=== PATIENT | male | born 1935 | race Caucasian/White ===

== ENCOUNTER 2017-10-27 01:28 | Emergency (ER) | payer MEDICARE, BC ==
[2017-10-27 02:12] VITALS: BP 164/93
--- NOTE | 2017-10-27 03:03 | EDM.PDOC ---
ED HPI GENERAL MEDICAL PROBLEM - General Chief Complaint: General Stated Complaint: heart palpitations Time Seen by Provider: 10/27/17 01:35 Source of Information: Reports: Patient History Limitations: Reports: No Limitations - History of Present Illness INITIAL COMMENTS - FREE TEXT/NARRATIVE: Presents to ER with complaints of acute palpitations. Denies any chest pain or shortness of breath. He states that the symptoms only lasted a few minutes and that he came to ER right away at onset. Pt. has a longstanding history of afib with RVR and has had a ablation. He states that he has been somewhat stressed and has not been getting much sleep. Onset: Today Onset Date: 10/27/17 - Related Data Allergies Allergy/AdvReac Type Severity Reaction Status Date / Time No Known Drug Allergies Allergy Other Verified 10/27/17 01:40 Home Meds: Home Meds Potassium Chloride [Klor-Con 10] 10 meq PO BID 04/21/15 [History] atorvaSTATin [Lipitor] 10 mg PO DAILY 04/21/15 [History] Aspirin [Adult Low Dose Aspirin EC] 81 mg PO DAILY 10/27/17 [History] Lisinopril 5 mg PO DAILY 10/27/17 [History] Past Medical History HEENT History: Reports: Hard of Hearing, Impaired Vision Cardiovascular History: Reports: Afib, High Cholesterol Other Cardiovascular History: atrial fib - Past Surgical History Cardiovascular Surgical History: Reports: Cardiac Ablation Other Male Surgeries/Procedures: Prostate removed Social & Family History - Tobacco Use Smoking Status *Q: Never Smoker - Recreational Drug Use Recreational Drug Use: No ED ROS GENERAL - Review of Systems Review Of Systems: See Below Constitutional: Reports: No Symptoms HEENT: Reports: No Symptoms Respiratory: Reports: No Symptoms Cardiovascular: Reports: Palpitations Endocrine: Reports: No Symptoms GI/Abdominal: Reports: No Symptoms : Reports: No Symptoms Musculoskeletal: Reports: No Symptoms Skin: Reports: No Symptoms Neurological: Reports: No Symptoms Psychiatric: Reports: No Symptoms Hematologic/Lymphatic: Reports: No Symptoms Immunologic: Reports: No Symptoms ED EXAM, GENERAL - Physical Exam Exam: See Below Exam Limited By: No Limitations General Appearance: Alert, WD/WN, No Apparent Distress Nose: Normal Inspection, Normal Mucosa, No Blood Throat/Mouth: Normal Inspection, Normal Lips, Normal Teeth, Normal Gums, Normal Oropharynx, Normal Voice, No Airway Compromise Head: Atraumatic, Normocephalic Neck: Normal Inspection, Supple, Non-Tender, Full Range of Motion Respiratory/Chest: No Respiratory Distress, Lungs Clear, Normal Breath Sounds, No Accessory Muscle Use, Chest Non-Tender Cardiovascular: Normal Peripheral Pulses, Regular Rate, Rhythm, No Edema, No Gallop, No JVD, No Murmur, No Rub Peripheral Pulses: 4+: Radial (L), Radial (R) GI/Abdominal: Normal Bowel Sounds, Soft, Non-Tender, No Organomegaly, No Distention, No Abnormal Bruit, No Mass (Male) Exam: Deferred Rectal (Males) Exam: Deferred Back Exam: Normal Inspection, Full Range of Motion, NT Extremities: Normal Inspection, Normal Range of Motion, Non-Tender, Normal Capillary Refill, No Pedal Edema Neurological: Alert, Oriented, CN II-XII Intact, Normal Cognition, Normal Gait, Normal Reflexes, No Motor/Sensory Deficits Psychiatric: Normal Affect, Normal Mood Skin Exam: Warm, Dry, Intact, Normal Color, No Rash Lymphatic: No Adenopathy EKG INTERPRETATION Rhythm: NSR [place]: Normal P-Wave: Present QRS: Normal ST-T: Normal QT: Normal Course - Vital Signs Last Recorded V/S: Last Vital Signs Temp 36.7 C 10/27/17 01:28 Pulse 91 10/27/17 01:52 Resp 14 10/27/17 01:52 BP 164/93 H 10/27/17 01:52 Pulse Ox 97 10/27/17 01:52 Departure - Departure Time of Disposition: 02:00 Disposition: Home, Self-Care 01 Condition: Good Clinical Impression: Intermittent palpitations - Discharge Information Instructions: Palpitations, [id number] Referrals: PCP,Nickoberick [Primary Care Provider] - Forms: ED Department Discharge Additional Instructions: Home to rest. Return to ER if you have any recurrence of the symptoms, chest pain, or shortness of breath. - Assessment/Plan Plan: Home to rest. Return to ER if you have any recurrence of the symptoms, chest pain, or shortness of breath.
== END 2017-10-27 01:56 | disposition home or self-care (01) ==
LOC: VM.ED 01:28
DX: R00.2 Palpitations (principal); I48.91 Unspecified atrial fibrillation; Z79.899 Other long term (current) drug therapy
CPT/HCPCS: 99284

== ENCOUNTER 2019-07-05 08:33 | Emergency (ER) | payer MEDICARE, BC ==
[2019-07-05] MEDS ORDERED: Sodium Chloride 0.9% 10 ML Syringe FLUSH PRN (09:17)
--- NOTE | 2019-07-05 09:20 | EDM.PDOC ---
ED HPI GENERAL MEDICAL PROBLEM - General Chief Complaint: Cardiovascular Problem Stated Complaint: SOB Time Seen by Provider: 07/05/19 09:05 Source of Information: Reports: Patient History Limitations: Reports: No Limitations - History of Present Illness INITIAL COMMENTS - FREE TEXT/NARRATIVE: Patient comes emergency department today with complaints of a fast heartbeat and palpitations. The consistency of the patient's story is that it is somewhat inconsistent. He initially tells me that it started last night when he was getting ready to go to bed when he exerts himself. When asked him what he was doing when the fast heart rate and palpitations started he said that he was just sitting there and nothing initiated it. Is unsure if he felt the sensation during the night when he was sleeping. He initially tells me he feels it at rest in the morning when he woke up but then he tells me he does not feel any lesions or fast heart rate when he is at rest only when he gets up and exerts himself. He then tells me his palpitations and fast heart rate go away when he gets up and exerts himself. He denies any confusion. No recent falls or trauma. No fever no chills. No chest pain weakness dizziness lightheadedness. No visual acuity changes. No paresthesias or change in the functionality of his upper or lower extremities. Denies any headache. No abdominal pain no nausea or vomiting. No fever no chills. No diarrhea recently. He does have a history of atrial fibrillation with RVR for which she has had an ablation in the past. He relates that he has to urinate more quickly when he feels his heart going fast. He did take his aspirin this morning as he does daily. He does have a history of anxiety with the palpitations sensations and he is very nervous about his heart rate. - Related Data Allergies Allergy/AdvReac Type Severity Reaction Status Date / Time No Known Drug Allergies Allergy Other Verified 07/05/19 09:04 Home Meds: Home Meds Potassium Chloride [Klor-Con 10] 10 meq PO BID 04/21/15 [History] atorvaSTATin [Lipitor] 10 mg PO DAILY 04/21/15 [History] Aspirin [Adult Low Dose Aspirin EC] 81 mg PO DAILY 10/27/17 [History] Lisinopril 5 mg PO DAILY 10/27/17 [History] Past Medical History HEENT History: Reports: Hard of Hearing, Impaired Vision Cardiovascular History: Reports: Afib, High Cholesterol Other Cardiovascular History: atrial fib - Past Surgical History Cardiovascular Surgical History: Reports: Cardiac Ablation Other Male Surgeries/Procedures: Prostate removed Social & Family History - Tobacco Use Smoking Status *Q: Unknown Ever Smoked ED ROS GENERAL - Review of Systems Review Of Systems: Comprehensive ROS is negative, except as noted in HPI. ED EXAM, GENERAL - Physical Exam Exam: See Below Exam Limited By: No Limitations General Appearance: Alert, WD/WN, No Apparent Distress, Anxious (quite anxious at that. ), Thin Eye Exam: Bilateral Eye: EOMI, PERRL Ears: Normal External Exam Nose: Normal Inspection, Normal Mucosa Throat/Mouth: Normal Inspection, Normal Lips, Normal Oropharynx, No Airway Compromise Head: Atraumatic, Normocephalic Neck: Normal Inspection, Supple, Non-Tender, Full Range of Motion. No: Carotid Bruit Respiratory/Chest: No Respiratory Distress, Lungs Clear, Normal Breath Sounds, No Accessory Muscle Use Cardiovascular: Normal Peripheral Pulses, No Edema, No Gallop, No JVD, No Murmur , No Rub, Tachycardia, Irregularly Irregular Peripheral Pulses: 2+: Radial (L), Radial (R), Posterior Tibial (L), Posterior Tibial (R), Dorsalis Pedis (L), Dorsalis Pedis (R) GI/Abdominal: Normal Bowel Sounds, Soft, Non-Tender (Male) Exam: Deferred Rectal (Males) Exam: Deferred Back Exam: Normal Inspection, Full Range of Motion Extremities: Normal Inspection, Normal Range of Motion, Non-Tender, Normal Capillary Refill Neurological: Alert, Oriented, Normal Cognition, No Motor/Sensory Deficits Psychiatric: Normal Affect, Normal Mood Skin Exam: Dry, Intact, Normal Color, Cool Lymphatic: No Adenopathy EKG INTERPRETATION EKG Date: 07/05/19 Time: 08:34 Rhythm: Other (Sinus tach) Rate (Beats/Min): 106 [place]: LAD-Left [place] Deviation P-Wave: Present QRS: Other (Left anterior fascicular block) ST-T: Normal QT: Normal Comparison: No Change Course - Vital Signs Last Recorded V/S: Last Vital Signs Temp 37.0 C 07/05/19 10:35 Pulse 90 07/05/19 10:35 Resp 18 07/05/19 10:35 BP 158/88 H 07/05/19 10:35 Pulse Ox 97 07/05/19 10:35 - Orders/Labs/Meds Orders: Active Orders 24 hr Category Date Time Status EKG Documentation Completion [RC] STAT Care 07/05/19 09:16 Active Peripheral IV Insertion Adult [OM.PC] Stat Oth 07/05/19 09:16 Ordered Labs: Laboratory Tests 07/05/19 07/05/19 07/05/19 Range/Units 08:55 08:55 09:50 WBC 3.8 L (4.0-10.0) x10^3/uL RBC 3.38 L (4.5-6.0) x10^6/uL Hgb 10.4 L D (14.0-18.0) g/dL Hct 31.2 L (40.0-52.0) % MCV 92.3 (78.0-93.0) fL MCH 30.8 (26.0-32.0) pg MCHC 33.3 (32.0-36.0) g/dL RDW Coeff of [place] 13.9 (10.0-15.0) % Plt Count 367 (130-400) x10^3/uL Neut % (Auto) 67.6 (50.0-80.0) % Lymph % (Auto) 21.2 L (25.0-50.0) % [place] % (Auto) 9.8 (2.0-11.0) % Eos % (Auto) 1.1 (0.0-4.0) % Baso % (Auto) 0.3 (0.2-1.2) % Sodium 133 L (136-145) mmol/L Potassium 4.3 (3.5-5.1) mmol/L Chloride 97 L (98-107) mmol/L Carbon Dioxide 25 (21-32) mmol/L Anion Gap 15.3 (10-20) mmol/L BUN 18 (7-18) mg/dL Creatinine 1.3 (0.70-1.30) mg/dL Est Cr Clr Drug Dosing TNP Estimated GFR (MDRD) 53 Glucose 135 H (74-106) mg/dL Calcium 8.6 (8.5-10.1) mg/dL Corrected Calcium 9.08 (8.5-10.1) mg/dL Total Bilirubin 0.3 (0.2-1.0) mg/dL AST 19 (15-37) U/L ALT 28 (16-63) U/L Alkaline Phosphatase 70 (46-116) U/L Troponin I < 0.017 (<=0.056) ng/mL Total Protein 7.0 (6.4-8.2) g/dL Albumin 3.4 (3.4-5.0) g/dL Globulin 3.6 Albumin/Globulin Ratio 0.94 TSH, Ultra Sensitive 1.754 (0.358-3.74) uIU/mL Urine Color Yellow (YELLOW) Urine Appearance Clear (CLEAR) Urine pH 7.5 (5.0-8.0) Ur Specific [place] 1.020 Urine Protein Negative (NEGATIVE) mg/dL Urine Glucose (UA) 100 H (NEGATIVE) mg/dL Urine Ketones Negative (NEGATIVE) mg/dL Urine Occult Blood Negative (NEGATIVE) Urine Nitrite Negative (NEGATIVE) Urine Bilirubin Negative (NEGATIVE) Urine Urobilinogen 0.2 (0.2) EU/dL Ur Leukocyte Esterase Negative (NEGATIVE) Meds: Medications Discontinued Medications Generic Name Dose Route Start Last Admin Trade Name Freq PRN Reason Stop Dose Admin Lorazepam 0.25 mg 07/05/19 09:44 07/05/19 10:13 Ativan PO 07/05/19 09:45 0.25 mg ONETIME ONE Administration Sodium Chloride 10 ml 07/05/19 09:17 Saline Flush FLUSH ASDIRECTED PRN Keep Vein Open - Re-Assessments/Exams Free Text/Narrative Re-Assessment/Exam: 07/05/19 10:25 He did get up to the bathroom about 3 times in a very period of time which she relates is normal when he feels anxious or his heart rate going fast. His EKG is unchanged from previous he has some mild sinus arrhythmia but after being here for a while and sitting he has an normal sinus rhythm in the 80s. His laboratory evaluation is rather unremarkable with a normal troponin TSH potassium. Given a small dose of lorazepam 0.25 mg orally. 07/05/19 The patient was monitored in the emergency department over the next couple of hours. His heart rate maintained in the 80s. He appropriately would elevate to about 100 when he would get up and go to the bathroom but it would back to 80s when he was resting. Following the Ativan he feels much better. He is not anxious anymore. He does not feel like he needs to urinate constantly. His palpitations and tachycardic sensation has resolved. His laboratory evaluation is really unremarkable. I have not seen any evidence of atrial fibrillation or atrial flutter or other irregular heartbeats. I really wonder if this is not somewhat of a component of anxiety that has been addressed in the past reviewing his multiple ER visits for tachycardia and palpitations. Not withstanding this I would still like him to rest over the next couple of days. If he continues to have the sensation see his primary care provider and will put a Holter monitor on for evaluation of tachycardia dysrhythmias. Tinea with his previous therapies. If at any time he feels like he is going to pass out his heartbeat is irregular or he develops pain or shortness of breath or new or different symptoms he is to recheck in the emergency department. He is understanding this and his questions are answered. Departure - Departure Time of Disposition: 10:46 Disposition: Home, Self-Care 01 Clinical Impression: Palpitation Instructions: Palpitations, [id number] Referrals: Breanna Patel MD [Primary Care Provider] - Forms: ED Department Discharge Additional Instructions: Continue with your previous therapies. See PCP this week for recheck and consider a holter monitor placement. Return to the ED if new or worsening symptoms. Follow up with PCP as above. Sepsis Event Note - Evaluation Sepsis Screening Result: No Definite Risk - Focused Exam Vital Signs: Vital Signs Temp Pulse Resp BP Pulse Ox 07/05/19 10:35 37.0 C 90 18 158/88 H 97 07/05/19 09:35 94 17 161/81 H 98 07/05/19 08:35 36.9 C 102 H 16 163/85 H 100 Date Exam was Performed: 07/05/19 Time Exam was Performed: 15:42 - My Orders Last 24 Hours: My Active Orders 07/05/19 09:16 EKG Documentation Completion [RC] STAT Peripheral IV Insertion Adult [OM.PC] Stat - Assessment/Plan Last 24 Hours: My Active Orders 07/05/19 09:16 EKG Documentation Completion [RC] STAT Peripheral IV Insertion Adult [OM.PC] Stat Assessment:: palpitations, ? anxiety or other underlying dysrythmia. Plan: Continue with your previous therapies. See PCP this week for recheck and consider a holter monitor placement. Return to the ED if new or worsening symptoms. Follow up with PCP as above.
[2019-07-05 09:55] LABS: ANION GAP 15.3 mmol/L (10-20); CHLORIDE,CL 97 mmol/L (98-107); SODIUM,NA 133 mmol/L (136-145)
[2019-07-05] MEDS: LORazepam 0.5 MG Tab PO ONE (10:13)
[2019-07-05 14:41] VITALS: BP 158/88; PULSE 90
== END 2019-07-05 11:03 | disposition home or self-care (01) ==
LOC: VM.ED 08:33
DX: R00.2 Palpitations (principal); I48.91 Unspecified atrial fibrillation; E78.00 Pure hypercholesterolemia, unspecified; Z79.82 Long term (current) use of aspirin; Z79.899 Other long term (current) drug therapy
CPT/HCPCS: 80053; 81003; 84443; 84484; 85025; 93005; 93010; 99284-GF; 99285-25; A9270-GY

== ENCOUNTER 2019-07-07 12:05 | Emergency (ER) | payer MEDICARE, BC ==
--- NOTE | 2019-07-07 12:36 | EDM.PDOC ---
ED HPI GENERAL MEDICAL PROBLEM - General Stated Complaint: ER Time Seen by Provider: 07/07/19 12:05 Source of Information: Reports: Patient History Limitations: Reports: No Limitations - History of Present Illness INITIAL COMMENTS - FREE TEXT/NARRATIVE: Pt. states that he had a brief episode of palpitations this afternoon after eating lunch. He has a history of paroxysmal atrial fib, but is normally in a sinus rhythm. He has undergone an ablation. He is not anticoagulated. He is not on any medication or rate control. Pt. was seen in ER 07/05/2019 with similar complaints. He had a complete ER workup at that time including EKG. He was found to be in a sinus rhythm at that time. Labs, including electrolytes, troponin and TSH were all within normal limits. He was monitored for several hours and found to be in a sinus rhythm during the visit. Was advised to follow up with his PCP, Dr. Patel, which is scheduled this afternoon. Pt. denies any chest pain or shortness of breath. No nausea vomiting, fever, or chills. No recent trauma. No cough. Denies any diaphoresis. Onset: Today Onset Date: 07/07/19 Location: Reports: Chest Associated Symptoms: Denies: Confusion, Chest Pain, Cough, Diaphoresis, Fever/ Chills, Headaches, Loss of Appetite, Malaise, Nausea/Vomiting, Rash, Seizure, Shortness of Breath, Syncope, Weakness - Related Data Allergies Allergy/AdvReac Type Severity Reaction Status Date / Time No Known Drug Allergies Allergy Other Verified 07/05/19 09:04 Home Meds: Home Meds Potassium Chloride [Klor-Con 10] 10 meq PO BID 04/21/15 [History] atorvaSTATin [Lipitor] 10 mg PO DAILY 04/21/15 [History] Aspirin [Adult Low Dose Aspirin EC] 81 mg PO DAILY 10/27/17 [History] Lisinopril 5 mg PO DAILY 10/27/17 [History] Past Medical History HEENT History: Reports: Hard of Hearing, Impaired Vision Cardiovascular History: Reports: Afib, High Cholesterol Other Cardiovascular History: atrial fib - Past Surgical History Cardiovascular Surgical History: Reports: Cardiac Ablation Other Male Surgeries/Procedures: Prostate removed ED ROS GENERAL - Review of Systems Review Of Systems: See Below Constitutional: Reports: No Symptoms HEENT: Reports: No Symptoms Respiratory: Reports: No Symptoms Cardiovascular: Reports: Palpitations Endocrine: Reports: No Symptoms GI/Abdominal: Reports: No Symptoms : Reports: No Symptoms Musculoskeletal: Reports: No Symptoms Skin: Reports: No Symptoms Neurological: Reports: No Symptoms Psychiatric: Reports: No Symptoms Hematologic/Lymphatic: Reports: No Symptoms Immunologic: Reports: No Symptoms ED EXAM, GENERAL - Physical Exam Exam: See Below Exam Limited By: No Limitations General Appearance: Alert EKG INTERPRETATION Rhythm: NSR [place]: Normal P-Wave: Present QRS: Normal ST-T: Normal QT: Normal Course - Re-Assessments/Exams Free Text/Narrative Re-Assessment/Exam: Pt. was placed on the monitor worker in ER and observed. He remained in a sinus rhythm during his stay and had no episodes of dysrhythmia. Departure - Departure Time of Disposition: 13:00 Disposition: Home, Self-Care 01 Clinical Impression: Palpitations - Discharge Information Instructions: Palpitations, [id number] Referrals: Breanna Patel MD [Primary Care Provider] - Additional Instructions: Follow-up with Dr. Patel this afternoon. Return to ER if you are having palpitations that are not going away with rest, or if you have chest pain, shortness of breath, or other worrisome signs or symptoms. Sepsis Event Note - Focused Exam Date Exam was Performed: 07/07/19 Time Exam was Performed: 12:48 - Problem List Review Problem List Initiated/Reviewed/Updated: Yes - Assessment/Plan Plan: Pt. was monitored for approx. an hour in ER. He had no episodes of tachycardia. No further workup was performed. Pt. has scheduled to follow-up with Dr. Patel today at 2:30 pm. Advised to keep the appointment to set up Holter study, etc. All questions were answered.
[2019-07-07 12:52] VITALS: BP 176/91; PULSE 95
== END 2019-07-07 13:00 | disposition home or self-care (01) ==
LOC: VM.ED 12:05
DX: R00.2 Palpitations (principal); I48.91 Unspecified atrial fibrillation; E78.00 Pure hypercholesterolemia, unspecified; Z79.82 Long term (current) use of aspirin; Z79.899 Other long term (current) drug therapy
CPT/HCPCS: 93005; 93010; 99284-25; 99284-GF

== ENCOUNTER 2021-09-06 11:21 | Emergency (ER) | payer MEDICARE, BC ==
[2021-09-06] MEDS ORDERED: Sodium Chloride 0.9% 10 ML Syringe FLUSH PRN (11:46)
[2021-09-06] MEDS: Sodium Chloride 0.9% 1,000 ML IV SCH ×2 (11:58→13:00)
[2021-09-06 12:25] LABS: ANION GAP 12.4 mmol/L (5-15)
[2021-09-06 14:28] LABS: ANION GAP 11.9 mmol/L (5-15)
[2021-09-06 14:30] VITALS: BP 142/80; PULSE 80
== END 2021-09-06 14:46 | disposition home or self-care (01) ==
LOC: VM.ED 11:21
DX: R06.02 Shortness of breath (principal); I50.9 Heart failure, unspecified; E87.1 Hypo-osmolality and hyponatremia; I48.91 Unspecified atrial fibrillation; E78.00 Pure hypercholesterolemia, unspecified; Z79.82 Long term (current) use of aspirin; Z79.899 Other long term (current) drug therapy; Z20.822 Contact with and (suspected) exposure to COVID-19
CPT/HCPCS: 36415; 71046; 80053; 81003; 83605; 83735; 83880; 84484; 85025; 93005; 93010; 96360; 96361; 99284; 99285-25; J7030; U0002

== ENCOUNTER 2021-09-09 19:28 | Emergency (ER) | payer MEDICARE, BC ==
[2021-09-09] MEDS ORDERED: Sodium Chloride 0.9% 10 ML Syringe FLUSH PRN (19:34)
[2021-09-09] MEDS: LORazepam 1 MG Tab PO ONE (19:59)
[2021-09-09] MEDS: Furosemide 40 MG/4 ML VIAL IV ONE (20:00)
[2021-09-09 20:29] LABS: PTT,PARTIAL THROMBOPLSTIN TIME 24.1 SEC (20.5-30.9)
[2021-09-09 20:33] LABS: CHLORIDE,CL 94 mmol/L (98-107)
[2021-09-09 20:35] LABS: ESTIMATED GFR 59 mL/min (>=60); SODIUM,NA 128 mmol/L (136-145)
[2021-09-09 21:09] VITALS: BP 169/101; PULSE 89
[2021-09-09 21:22] LABS: CORONAVIRUS COVID-19 NAA NEGATIVE (NEGATIVE)
[2021-09-09 21:23] LABS: RESPIRATORY SYNCYTIAL VIR NAA NEGATIVE (NEGATIVE)
[2021-09-09] MEDS: Iopamidol 755 Mg/ML 100 ML Bottle IVPUSH ONE (21:58)
== END 2021-09-09 23:09 ==
LOC: VM.ED 19:28
DX: I50.9 Heart failure, unspecified (principal); E87.1 Hypo-osmolality and hyponatremia; I48.91 Unspecified atrial fibrillation; E78.00 Pure hypercholesterolemia, unspecified; Z79.899 Other long term (current) drug therapy; Z79.82 Long term (current) use of aspirin; Z20.822 Contact with and (suspected) exposure to COVID-19
CPT/HCPCS: 0241U; 71045; 71275; 80053; 83735; 83880; 84484; 85025; 85379; 85610; 85730; 86140; 93005; 96374; 99284; 99285-25; A9270-GY; J1940; Q9967

== ENCOUNTER 2021-09-11 12:58 | Emergency (ER) | payer MEDICARE, BC ==
[2021-09-11 13:18] VITALS: BP 144/66; PULSE 85
[2021-09-11 14:15] LABS: CHLORIDE,CL 90 mmol/L (98-107)
[2021-09-11 14:16] LABS: ANION GAP 12.5 mmol/L (5-15); ESTIMATED GFR 49 mL/min (>=60); SODIUM,NA 124 mmol/L (136-145)
== END 2021-09-11 14:38 | disposition home or self-care (01) ==
LOC: VM.ED 12:58
DX: R00.2 Palpitations (principal); E78.00 Pure hypercholesterolemia, unspecified; Z79.899 Other long term (current) drug therapy
CPT/HCPCS: 36415; 80053; 83735; 83880; 84100; 84443; 84484; 85025; 93005; 93010; 99285

== ENCOUNTER 2021-09-19 05:21 | Emergency (ER) | payer MEDICARE, BC ==
[2021-09-19 05:25] VITALS: BP 151/74; PULSE 88
[2021-09-19 06:16] LABS: ANION GAP 12.9 mmol/L (5-15)
== END 2021-09-19 06:41 | disposition home or self-care (01) ==
LOC: VM.ED 05:21
DX: J18.9 Pneumonia, unspecified organism (principal); I48.91 Unspecified atrial fibrillation; E78.00 Pure hypercholesterolemia, unspecified; Z79.82 Long term (current) use of aspirin; Z79.899 Other long term (current) drug therapy
CPT/HCPCS: 36415; 71046; 80053; 82550; 83615; 83880; 84484; 85025; 93005; 93010; 99284; 99285

== ENCOUNTER 2021-10-08 12:50 | Emergency (ER) | payer MEDICARE, BC ==
[2021-10-08 13:46] LABS: CHLORIDE,CL 93 mmol/L (98-107)
[2021-10-08 13:47] LABS: ANION GAP 13.2 mmol/L (5-15); ESTIMATED GFR 65 mL/min (>=60); SODIUM,NA 129 mmol/L (136-145)
[2021-10-08 14:17] VITALS: BP 126/70; PULSE 76
== END 2021-10-08 14:10 | disposition home or self-care (01) ==
LOC: VM.ED 12:50
DX: R00.2 Palpitations (principal); E87.1 Hypo-osmolality and hyponatremia; Z79.899 Other long term (current) drug therapy; Z79.82 Long term (current) use of aspirin
CPT/HCPCS: 36415; 71046; 80053; 82550; 83615; 83880; 84484; 85025; 93005; 93010; 99284; 99285

== ENCOUNTER 2022-10-07 02:27 | Emergency (ER) | payer MEDICARE, BC ==
[2022-10-07 02:57] VITALS: BP 154/76; PULSE 85
[2022-10-07 03:12] LABS: BASOPHILS PERCENT AUTO 0.6 % (0.2-1.2); EOSINOPHILS ABSOLUTE AUTO 0.1 x10^3/uL (0.0-0.5); HEMATOCRIT 37.1 % (40.0-52.0); HEMOGLOBIN 13.1 g/dL (14.0-18.0); IMMATURE GRAN ABSOLUTE AUTO 0.01 x10^3/uL (0.00-0.07); LYMPHOCYTES ABSOLUTE AUTO 1.2 x10^3/uL (1.0-4.8); MEAN CORPUSCULAR HEMOGLOBIN 33.3 pg (26.0-32.0); MEAN CORPUSCULAR HGB CONC 35.3 g/dL (32.0-36.0); MEAN CORPUSCULAR VOLUME 94.4 fL (78.0-93.0); MONOCYTES ABSOLUTE AUTO 0.7 x10^3/uL (0.0-0.8); MONOCYTES PERCENT AUTO 21.3 % (2.0-11.0); NEUTROPHILS ABSOLUTE AUTO 1.4 x10^3/uL (1.8-7.7); NEUTROPHILS PERCENT AUTO 40.8 % (50.0-80.0); PLATELET COUNT,PLT 161 x10^3/uL (130-400); RED BLOOD CELL COUNT 3.93 x10^6/uL (4.5-6.0); WHITE BLOOD CELL COUNT,WBC 3.4 x10^3/uL (4.0-10.0)
[2022-10-07 03:16] LABS: APPEARANCE,URINE CLEAR (CLEAR); BILIRUBIN,URINE NEGATIVE (NEGATIVE); COLOR,URINE YELLOW (YELLOW); GLUCOSE,URINE NEGATIVE (NEGATIVE); KETONES,URINE NEGATIVE (NEGATIVE); LEUKOCYTE ESTERASE,URINE NEGATIVE (NEGATIVE); NITRITE,URINE NEGATIVE (NEGATIVE); OCCULT BLOOD,URINE NEGATIVE (NEGATIVE); PH,URINE 7.5 (5.0-8.0); PROTEIN,URINE NEGATIVE (NEGATIVE); UROBILINOGEN,URINE 0.2 EU/dL (0.2)
[2022-10-07 03:31] LABS: ALANINE AMINOTRANSFERASE,ALT 16 U/L (16-63); ALBUMIN 3.6 g/dL (3.4-5.0); ALKALINE PHOSPHATASE 79 U/L (46-116); ANION GAP 13.2 mmol/L (5-15); ASPARTATE AMNIOTRANSFERASE,AST 14 U/L (15-37); BILIRUBIN TOTAL 0.4 mg/dL (0.2-1.0); BLOOD UREA NITROGEN,BUN 24 mg/dL (7-18); CALCIUM 8.8 mg/dL (8.5-10.1); CARBON DIOXIDE,CO2 27 mmol/L (21-32); CHLORIDE,CL 101 mmol/L (98-107); CREATININE 1.3 mg/dL (0.70-1.30); ESTIMATED GFR 53 mL/min (>=60); GLUCOSE RANDOM 97 mg/dL (70-99); POTASSIUM,K 4.2 mmol/L (3.5-5.1); PROTEIN TOTAL,TP 7.2 g/dL (6.4-8.2); SODIUM,NA 137 mmol/L (136-145)
[2022-10-07] MEDS ORDERED: Melatonin 3 MG Tab PO ONE (04:06)
== END 2022-10-07 04:20 | disposition home or self-care (01) ==
LOC: VM.ED 02:27
DX: G47.00 Insomnia, unspecified (principal); E78.00 Pure hypercholesterolemia, unspecified; Z79.82 Long term (current) use of aspirin; Z79.899 Other long term (current) drug therapy
CPT/HCPCS: 36415; 70450; 80053; 81003; 84484; 85025; 93005; 93010; 99284; 99285; A9270-GY

== ENCOUNTER 2023-07-02 07:40 | Day surgery (SDC) | payer MEDICARE, BC ==
[2023-07-02] MEDS: Lactated Ringers 1,000 ML IV SCH (07:58)
[2023-07-02] MEDS ORDERED: Lidocaine 4% 5 ML Amp ONE (09:37)
[2023-07-02] MEDS ORDERED: Propofol 200 MG/20 ML SDV ONE (09:37)
[2023-07-02 10:43] VITALS: BP 136/72; PULSE 83
== END 2023-07-02 11:10 | disposition home or self-care (01) ==
LOC: VM.SDS 07:40
PROVIDERS: ATTEND Student in an Organized Health Care Education/Training Program
DX: K22.70 Barrett's esophagus without dysplasia (principal); K20.90 Esophagitis, unspecified without bleeding; K44.9 Diaphragmatic hernia without obstruction or gangrene; I10 Essential (primary) hypertension; E78.5 Hyperlipidemia, unspecified; F41.9 Anxiety disorder, unspecified
CPT/HCPCS: 00731; 43239; 88305; 99100; J2704; J7120; J3490